=== PATIENT | female | born 1955 | race Caucasian/White ===

== ENCOUNTER → 2016-09-25 | Outpatient (CLI) | payer MEDICARE ==
[~2016-09-25] MED LIST: ATENOLOL50 MG PO; CITALOPRAM20 MG PO; ESTRADIOL0.5 MG PO; OMEPRAZOLE D/R20 MG PO; REQUIP 1 MG TABL1 MG FT; TRAZODONE 50MG50 MG PO
--- NOTE | 2016-09-25 15:27 | RADIOLOGY REPORT PS360 ---
CHEST(2 VIEWS-NOT PORTABLE) HISTORY: LEFT SIDED CHEST WALL PAIN ORDERING PHYSICIAN: RAIZA ALVAREZ APRN PATIENT AGE: 61 years COMPARISON: None available FINDINGS: There is normal heart size. No lobar consolidation or collapse is evident. There are unusual curvilinear densities one in the left mid lung near the hilum and one in the right infrahilar region. Etiology of this is indeterminate. Foreign bodies in the bronchi is a consideration. Chest CT without contrast made for further evaluation. There are atelectatic or fibrotic changes in the left lower lobe. No effusions or infiltrates. No acute bony anomalies IMPRESSION: 1. Left lower lobe atelectasis or fibrosis. 2. Curvilinear opacities centrally as described above. Possible endobronchial foreign bodies. Unenhanced CT suggested for further evaluation
== END ==
LOC: RT 11:51
DX: R07.89 Other chest pain (principal)

== ENCOUNTER → 2016-11-11 | Outpatient (CLI) | payer MEDICARE ==
[2016-11-11 10:46] LABS: BUN 14 mg/dL (7-18)
[2016-11-11 10:47] LABS: GFR (ESTIMATED) 102 ML/MIN (59-)
--- NOTE | 2016-11-12 06:56 | RADIOLOGY REPORT PS360 ---
CTA-CHEST HISTORY: CHEST PAIN, SOA, ABN CT OF CHEST Patient Age: 61 years: Female Ordering Physician: Marco Bingham MD TECHNIQUE: Bolus administration of cc cc [id number] followed by 40 and L of normal saline. COMPARISON :Previous CT chest October 19, 2016. FINDINGS Good enhancement of aorta and pulmonary arteries on this study. No evidence thrombotic pulmonary embolism but we do see curious bilateral thin linear dense areas at both right and left lung as noted on prior CT not 1117 and previous chest film plain film radiograph 09/25/2016... These in the previously noted and again seen today. There previously questioned as focal calcified vessels involving pulmonary arteries but are perhaps better seen on today's postcontrast study as related to vessels Left lung vessels. This radiopaque, nearly 5 cm length thin linear density extends from central left pulmonary artery into left upper lobe branch vessel. It is seen passing through, transversing through left pulmonary artery, not with the typical pattern of calcification of a vessel along its wall. This feature nicely seen on additional coronal reconstruction views.. The CT appearance raises conceivable possibility of a catheter fragment from the remote past which is now shows some calcification along its course. Is there history of subclavian catheter placement? However the plain films do have more of the appearance of a calcified structure. Nonetheless Isolated calcified vessels of this nature due to would be very unusual pattern..This would be unusual sequela of a prior calcified pulmonary embolism thrombus for example. Other considerations: I believe patient is to young to have encountered old lymphangiogram contrast agent and this type of entity would typically be more diffuse distribution throughout lungs; as would other foreign body substances/entities introduced intravenous (-i.E. if the patient had a history of a of drug use which I here does not sound to be the case). Right lung vessels. At right lower lobe there is a similar appearance with a elongated over 4 cm thin linear density extending from the right pulmonary artery extending into a right lower lobe pulmonary branch artery. On plain film we see some slight branching of this feature which is noted in curious & May reflect some calcification along its course. Similar considerations as above Very tortuosity appearance of great vessels arise are particularly left common carotid artery-again seen . No mediastinal or hilar mass or adenopathy. Normal heart size. Upper normal thickness of esophagus previously mentioned. Conceivably reflecting mild esophagitis if symptoms of such. Subtle groundglass opacity towards the posterior lung bases bilaterally most likely reflecting atelectatic & mild scarring, particularly given the slightly linear character of these areas on the sagittal reconstructions. . No suspicious pulmonary nodules. No lobar consolidation or collapse. . No pleural effusions no pleural lesions. Chest wall unremarkable.. Dense breast bilaterally Upper abdomen. Cholecystectomy. Otherwise unremarkable . Mid a likely T8 vertebral body has a somewhat coarsecorrugated trabecular appearance on most likely reflecting a hemangioma. IMPRESSION: 1. Bilateral thin linear radiopaque densities/ with linear pulmonary arterial calcifications seen within the pulmonary arteries bilaterally & as noted on previous CXR & prior CT.. Etiology and clinical significance is uncertain. These long linear & calcified structures are seen passing through the pulmonary arteries at RLL and L UL.. . 2. No PE evident currently. No evidence of thromboembolic emboli.. 3. Bilateral atelectatic and/or fibrotic change IMPRESSION:
== END ==
LOC: RAD 10:01
PROVIDERS: Internal Medicine Cardiovascular Disease
DX: R07.9 Chest pain, unspecified (principal); R06.02 Shortness of breath; R93.8 Abnormal findings on diagnostic imaging of other specified body structures
CPT/HCPCS: Q9967

== ENCOUNTER 2016-11-17 08:38 | Day surgery (SDC) | payer MEDICARE ==
[2016-11-17 09:18] LABS: LYMPH # 1.8 K/mm3 (0.7-4.5); LYMPH % 35.5 % (10-50.0)
[2016-11-17 09:26] LABS: BUN 15 mg/dL (7-18)
[2016-11-17 09:29] LABS: GFR (ESTIMATED) 102 ML/MIN (59-)
--- NOTE | 2016-11-17 15:14 | RADIOLOGY REPORT PS360 ---
CARDIAC CATHETERIZATION DATE OF CATHETERIZATION:11/17/2016 10:34 AM PROCEDURES: 1. 2. 3. 4. INDICATION FOR TEST: 1. 2. 3. Informed consent was obtained prior to the procedure. COMPLICATIONS: ESTIMATED BLOOD LOSS: Less than 10 ml. TECHNIQUE: One percent lidocaine used to anesthetize the right anterior aspect of the wrist. The right radial artery was accessed via the Seldinger technique. A 6 Barbadian sheath was placed in the right radial artery. 2.5 mg of verapamil, 800 mcg of nitroglycerin and 5000 U Heparin were given through the arterial sheath. The Catie catheter was also used to perform left heart catheterization and left ventriculography. At the end of the procedure the patient was transferred to the post-op holding area in stable condition for arterial sheath removal. ANGIOGRAPHIC RESULTS: 1. The left main artery 2. The left anterior descending artery 3. The circumflex artery 4. The right coronary artery 5. The OB[place] ventriculogram reveals 6. The left ventricular end-diastolic pressure IMPRESSION: 1. coronary arteries. 2. 3. 4. 5. PLAN: 1. 2. 3. CARDIAC CATHETERIZATION DATE OF CATHETERIZATION:11/17/2016 3:03 PM PROCEDURES: 1. Left heart catheterization 2. Left ventriculogram 3. Selective coronary angiogram 4. Drug-eluting stent deployment to the mid LAD 5. Drug-eluting stent deployment to the first diagonal artery INDICATION FOR TEST: 1. Abnormal echocardiogram 2. Angina pectoris class IV 3. High pretest likelihood for coronary artery disease Informed consent was obtained prior to the procedure. COMPLICATIONS: None ESTIMATED BLOOD LOSS: Less than 10 ml. TECHNIQUE: One percent lidocaine used to anesthetize the right anterior aspect of the wrist. The right radial artery was accessed via the Seldinger technique. A 6 Barbadian sheath was placed in the right radial artery. 2.5 mg of verapamil, 800 mcg of nitroglycerin and 5000 U Heparin were given through the arterial sheath. The trap catheter was used for the diagnostic left heart catheterization left ventriculogram and selective coronary angiogram. At the end of the diagnostic angiogram 180 mg of oral Brilinta and an additional 4000 units of heparin was administered intravenously. The ACT was out of range. An [employer] left guide catheter was used intubate the left main artery and a BMW wire was placed distally in the LAD. A 2.25 x 18 mm resolute Lenin stent deployed at 20 xochitl in the mid LAD reducing the sequential 80% stenoses to 0%. JULIAN-3 flow was present before and after the procedure. The wire was pulled back and placed in the first diagonal artery right 2.25 x 8 mm resolute [place] stent was deployed at the 90% stenosis at 16 xochitl reducing the stenosis to 0%. JULIAN-3 flow was present down the vessel before and after the procedure at the end of procedure the apparatus was removed sheath was removed and hemostasis was achieved using TR banding patient transferred the postop holding area in stable condition ANGIOGRAPHIC RESULTS: 1. The left main artery has distal eccentric 20% stenosis 2. The left anterior descending artery has proximal 10% stenosis with a 80% sequential stenoses immediately after a large second septal toolmaker. The first diagonal artery has a mid vessel focal 90% concentric stenosis 3. The circumflex artery is a nondominant vessel and has a distal eccentric 50% stenosis at a 2.75 mm area 4. The right coronary artery is a large dominant vessel and normal 5. The [place] ventriculogram reveals normal 65% 6. The left ventricular end-diastolic pressure 20 mmHg IMPRESSION: 1. Severe mid LAD disease 2. Successful stenting the mid LAD sequential severe stenoses reduced to 0% with 1 drug-eluting stent 3. Severe stenosis in the first diagonal artery 4. Successful stenting of the first diagonal artery severe focal disease reduced to 0% with 1 drug-eluting stent 5. Persistent moderate stenosis in the circumflex artery 6. Normal ejection fraction 7. Mildly elevated LVEDP PLAN: 1. Brilinta and aspirin 2. LDL less than 55 3. Avoidance of tobacco products 4. Cardiac rehabilitation 5. Risk factor modification
[2016-11-17 15:34] VITALS: BP 140/74
== END 2016-11-17 15:55 | disposition home or self-care (01) ==
LOC: CATHLAB 08:38
PROVIDERS: Internal Medicine
PROC: B2111ZZ Fluoroscopy of Multiple Coronary Arteries using Low Osmolar Contrast (ICD-10-PCS; 2016-11-17)
PROC: B2151ZZ Fluoroscopy of Left Heart using Low Osmolar Contrast (ICD-10-PCS; 2016-11-17)
PROC: 027135Z Dilation of Coronary Artery, Two Arteries with Two Drug-eluting Intraluminal Devices, Percutaneous Approach (ICD-10-PCS; 2016-11-17)
PROC: 4A023N7 Measurement of Cardiac Sampling and Pressure, Left Heart, Percutaneous Approach (ICD-10-PCS; principal; 2016-11-17 13:30)
DX: I25.119 Atherosclerotic heart disease of native coronary artery with unspecified angina pectoris (principal); Z72.0 Tobacco use; R93.1 Abnormal findings on diagnostic imaging of heart and coronary circulation; R07.9 Chest pain, unspecified
CPT/HCPCS: C1725; C1769; C1876; J1644; Q9967